=== PATIENT | female | born 1955 | race Caucasian/White ===

== ENCOUNTER 2018-08-06 12:32 | Observation (INO) ==
[2018-08-06] MEDS ORDERED: Famotidine PF Inj 20 MG/2 ML Vial IV.PUSH ONE (14:20)
[2018-08-06 14:49] LABS: Baso # (Auto) 0.1 th/mm3 (0.0-0.2); Baso % (Auto) 0.6 % (0.0-2.0); Eos # (Auto) 0.1 th/mm3 (0.0-0.4); Eos % (Auto) 0.6 % (0.0-4.0); Hematocrit 43.6 % (35.0-46.0); Hemoglobin 14.2 gm/dL (11.6-15.3); Lymph # (Auto) 2.4 th/mm3 (1.0-4.8); Lymph % (Auto) 24.6 % (9.0-44.0); Mean Corpuscular HGB Conc 32.6 % (32.0-36.0); Mean Corpuscular Hemoglobin 30.4 pg (27.0-34.0); Mean Corpuscular Volume 93.1 fL (80.0-100.0); Mean Platelet Volume 9.2 fL (7.0-11.0); Mono # (Auto) 0.7 th/mm3 (0.0-0.9); Mono % (Auto) 6.9 % (0.0-8.0); Neut # (Auto) 6.6 th/mm3 (1.8-7.7); Neut % (Auto) 67.3 % (16.0-70.0); Platelet Count 246 th/mm3 (150-450); Red Blood Count 4.68 mil/mm3 (4.00-5.30); Red Cell Distribution Width 12.8 % (11.6-17.2); White Blood Count 9.9 th/mm3 (4.0-11.0)
[2018-08-06 14:57] LABS: Chloride 105 meq/L (98-107); Potassium 4.1 meq/L (3.5-5.1); Sodium 140 meq/L (136-145)
[2018-08-06 15:00] LABS: Calcium 8.8 mg/dL (8.5-10.1)
[2018-08-06 15:01] LABS: Albumin 3.7 g/dL (3.4-5.0); Anion Gap 9 meq/L (5-15); Blood Urea Nitrogen 12 mg/dL (7-18); Glucose,Random 108 mg/dL (74-106)
[2018-08-06 15:04] LABS: Alanine Aminotransferase 30 U/L (10-53); Aspartate Aminotransferase 26 U/L (15-37); Glomerular Filtration Rate 82 mL/min (>89)
[2018-08-06 15:05] LABS: Total Protein 7.2 g/dL (6.4-8.2)
[2018-08-06 15:07] LABS: Alkaline Phosphatase 39 U/L (45-117)
[2018-08-06] MEDS ORDERED: Aluminum/Magnesium/Simethacone Susp 30 ML UDC PO ONE (15:10)
--- NOTE | 2018-08-06 15:53 | XR ---
EXAM DATE: 08/06/2018 3:49 PM EST AGE/SEX: 62 years / Female INDICATIONS: Vomiting, unable to drink or eat, feels like she is choking when she tries to eat or dr ink CLINICAL DATA: This is the patient's initial encounter. Patient reports that signs and symptoms have been present for 1 day and indicates a pain score of 6/10. MEDICAL/SURGICAL HISTORY: None. None. COMPARISON: No prior exams available for comparison. FINDINGS: A single AP view of the chest demonstrates the lungs to be symmetrically aerated without evidence of mass, infiltrate or effusion. The cardiomediastinal contours are unremarkable. Osseous structures a re intact. CONCLUSION: 1. No acute cardiopulmonary disease. Electronically signed by: Jacob Smith MD 08/06/2018 3:51 PM EST
[2018-08-06] MEDS ORDERED: Acetaminophen 325 MG Tablet PO PRN (16:49)
[2018-08-06] MEDS ORDERED: Bisacodyl 10 MG Supp RECTAL PRN (16:49)
--- NOTE | 2018-08-06 17:05 | P.HP ---
History of Present Illness Primary Care Physician: PROVIDER NON STAFF Chief Complaint: Dysphasia History of Present Illness: 62-year-old female with no chronic medical illnesses who presented to the hospital for evaluation of dysphagia, intractable vomiting. Patient states that she is in normal state of health until this morning. She had 2 cups of coffee and then proceeded to have a piece of turkey for breakfast when she felt something get stuck down in her abdomen and started retching and vomiting up the turkey. She states that this happened to her in the past a few times and she takes an antacid and it usually resolves the problem. She did take an antacid this morning without any relief. Every time the patient tries to drink any liquids or eat any solids she has instant regurgitation of the food or liquid. Because of that reason she came to the emergency department for evaluation. Patient was unsuccessful in Trying any oral medications or treatment due to intractable vomiting. Chest x- ray was performed which did not indicate any acute abnormality. It was recommended by the ER physician that the patient be admitted for further evaluation and management. Patient denies any chest pain, shortness of breath, dyspnea, hematemesis, nausea. - Diagnosis (1) Dysphagia (2) Esophageal mass Review of Systems All other systems reviewed negative except as stated in HPI Gastrointestinal: Reports vomiting PMFSH - History History Provided By: Patient - Medical History Medical History: Medical History (Last Updated 08/06/18 @ 16:58 by DARLEEN Pathak) Alcohol use Hyperlipidemia Tobacco use - Surgical History Surgical History: Surgical History (Last Updated 08/06/18 @ 13:56 by Joanne Saucedo RN) No history of previous surgery - Family History Family History: Family History (Last Updated 08/06/18 @ 16:58 by DARLEEN Pathak) Other No pertinent family history - Tobacco History Second Hand Smoke Exposure: No Tobacco Use In Past 30 Days: Yes Smoking Status: Current every day smoker Tobacco Type: Cigarettes - Alcohol History How Often Do You Have a Drink Containing Alcohol: 4 or more times a week ( Patient drinks at least 2 alcoholic beverages daily) - Substance Use History Substance History: No History of Abuse - Travel History Recent Travel in the [place] Within the Last 8 Weeks: No Recent Travel Out of the Country Within the Last 8 Weeks: No - Immunization History Tetanus Immunization: Unsure Medications and Allergies Allergies Allergy/AdvReac Type Severity Reaction Status Date / Time No Known Allergies Allergy Verified 08/06/18 12:50 Home Medications Medication Instructions Recorded Confirmed Type No Known Home Medications 08/06/18 08/06/18 History Exam Vital signs: Vital Signs 08/06/18 12:47 08/06/18 16:48 Temperature 98.6 F Pulse Rate 81 75 Respiratory Rate 16 16 Blood Pressure 137/92 H 151/61 H Pulse Oximetry 97 100 Intake & Output 08/05/18 08/06/18 08/06/18 18:59 06:59 18:59 Weight 90.2 kg Narrative: GENERAL: Well-developed, well-nourished, in no acute distress. alert and orientated HEENT: Head is normocephalic without any lesions or masses noted. Facial features are symmetric. Eyes: Pupils equal round reactive to light. Extraocular muscles are intact. Conjunctivae were clear. Oropharyngeal: Pharynx without any erythema edema. Tongue is midline without deviation. Buccal mucosa is moist without any masses or lesions NECK: Supple without any masses. Trachea midline no deviation. No JVD, no bruits are appreciated CARDIAC: Regular rhythm, regular rate. S1/S2 are heard. No murmurs gallops or rubs. LUNGS: Clear to auscultation bilaterally. No wheeze, rhonchi or rales. No use of accessory muscles on inspiration or expiration. ABDOMEN: Soft, nontender. Nondistended. Bowel sounds heard in all 4 quadrants. No organomegaly or masses. Negative rebound, negative guarding EXTREMITIES: No edema, pulses are equal bilaterally. No cyanosis or clubbing NEUROLOGY: Mood and affect appear appropriate. Cranial nerves II through XII grossly intact. Muscle strength 5/5 in upper and lower extremities bilaterally. Deep tendon reflexes are 2+ in upper and lower extremities bilaterally. Results - Labs CBC & Chem 7: 08/06/18 14:30 08/06/18 14:30 Labs: Laboratory Results - last 24 hr 08/06/18 08/06/18 14:30 14:30 CBC w Diff Auto diff final WBC 9.9 RBC 4.68 Hgb 14.2 Hct 43.6 MCV 93.1 MCH 30.4 MCHC 32.6 RDW 12.8 Plt Count 246 MPV 9.2 Neut % (Auto) 67.3 Lymph % (Auto) 24.6 [place] % (Auto) 6.9 Eos % (Auto) 0.6 Baso % (Auto) 0.6 Neut # (Auto) 6.6 Lymph # (Auto) 2.4 [place] # (Auto) 0.7 Eos # (Auto) 0.1 Baso # (Auto) 0.1 WBC Differential . Differential Comment . Sodium 140 Potassium 4.1 Chloride 105 Carbon Dioxide 26.0 Anion Gap 9 BUN 12 Creatinine 0.72 Estimated GFR 82 L Random Glucose 108 H Calcium 8.8 Total Bilirubin 0.6 AST 26 ALT 30 Alkaline Phosphatase 39 L Total Protein 7.2 Albumin 3.7 - Imaging Impressions Chest X-Ray 08/06/18 14:54 CONCLUSION: 1. No acute cardiopulmonary disease. Caprini VTE Risk Assessment Caprini VTE Risk Assessment: Moderate/High Risk (score >= 2) Caprini Risk Assessment Model: Point Value = 1 Point Value = 2 Point Value = 3 Point Value = 5 Age 41-60 Minor surgery BMI > 25 kg/m2 Swollen legs Varicose veins or History of unexplained or recurrent spontaneous Oral contraceptives or hormone replacement Sepsis (< 1 month) Serious lung disease, including pneumonia (< 1 month) Abnormal pulmonary function Acute myocardial infarction Congestive heart failure (< 1 month) History of inflammatory bowel disease Medical patient at bed rest Age 61-74 Arthroscopic surgery Major open surgery (> 45 min) Laparoscopic surgery (> 45 min) Malignancy Confined to bed (> 72 hours) Immobilizing plaster cast Central venous access Age >= 75 History of VTE Family history of VTE Factor V Leiden Prothrombin [id number] Lupus anticoagulant Anticardiolipin antibodies Elevated serum homocysteine Heparin-induced thrombocytopenia Other congenital or acquired thrombophilia Stroke (< 1 month) Elective arthroplasty Hip, pelvis, or leg fracture Acute spinal cord injury (< 1 month) Prophylaxis Regimen: Total Risk Factor Score Risk Level Prophylaxis Regimen 0-1 Low Early ambulation 2 Moderate Order ONE of the following: *Sequential Compression Device (SCD) *Heparin 5000 units SQ BID 3-4 Higher Order ONE of the following medications: *Heparin 5000 units SQ TID *Enoxaparin/Lovenox 40 mg SQ daily (WT < 150 kg, CrCl > 30 mL/min) *Enoxaparin/Lovenox 30 mg SQ daily (WT < 150 kg, CrCl > 10-29 mL/min) *Enoxaparin/Lovenox 30 mg SQ BID (WT < 150 kg, CrCl > 30 mL/min) AND/OR *Sequential Compression Device (SCD) 5 or more Highest Order ONE of the following medications: *Heparin 5000 units SQ TID (Preferred with Epidurals) *Enoxaparin/Lovenox 40 mg SQ daily (WT < 150 kg, CrCl > 30 mL/min) *Enoxaparin/Lovenox 30 mg SQ daily (WT < 150 kg, CrCl > 10-29 mL/min) *Enoxaparin/Lovenox 30 mg SQ BID (WT < 150 kg, CrCl > 30 mL/min) AND *Sequential Compression Device (SCD) Assessment and Plan - Assessment (1) Dysphagia Code(s): R13.10 - Dysphagia, unspecified Status: Acute (2) Esophageal mass Code(s): K22.9 - Disease of esophagus, unspecified Status: Acute - Plan Dysphagia with intractable vomiting -Patient intolerant to any liquids or solids. Will keep n.p.o. at this time -Chest x-ray was reviewed by myself and does not have any anatomical abnormalities which could promote dysphagia -GI consultation was requested, patient will require upper endoscopy for evaluation -Consult speech therapist for swallow evaluation -CT scan of the abdomen and pelvis was performed and indicated esophageal mass -Continue IV fluids DVT prevention -Sequential compression devices
--- NOTE | 2018-08-06 17:13 | ED ---
HPI General Chief complaint: Nausea/Vomiting/Diarrhea Stated complaint: Swallowing Difficulty/Acid Reflux [id number] Time Seen by Provider: 08/06/18 14:11 Source: patient Mode of arrival: ambulatory Limitations: no limitations History of Present Illness HPI narrative: Patient is a 62-year-old female who comes in complaining of nausea and vomiting. She says it started this morning after drinking her coffee. She says she feels like things get stuck in her stomach and then she feels like she is suffocating as they come back up. she says she tried to eat some [place] afterwards and it came back up again. She says this has happened before, but she has not followed up with GI. She says she has some burning in her esophagus and she feels like she is having reflux. Severity is moderate. Related Data Home Medications Medication Instructions Recorded Confirmed No Known Home Medications 08/06/18 08/06/18 Allergies Allergy/AdvReac Type Severity Reaction Status Date / Time No Known Allergies Allergy Verified 08/06/18 12:50 Review of Systems ROS: all other systems reviewed are negative Constitutional Denies chills and Denies fever(s) ENT Denies dizziness Cardiovascular Denies chest pain and Denies dyspnea Respiratory Denies cough Gastrointestinal Reports nausea and Reports vomiting Musculoskeletal Denies myalgias and Denies arthralgias Integumentary/Breasts Denies sores and Denies wounds Neurologic Denies focal weakness and Denies numbness PMFSH Medical History Medical History Alcohol use (Acute) Hyperlipidemia (Acute) Tobacco use (Acute) Surgical History Surgical History No history of previous surgery (Acute) Family History Family History Other No pertinent family history Social History Social History Substance History: No History of Abuse Second Hand Smoke Exposure: No Smoking Status: Current every day smoker Tobacco Type: Cigarettes How Often Do You Have a Drink Containing Alcohol: 4 or more times a week ( Patient drinks at least 2 alcoholic beverages daily) Recent Travel in [facility] within the Last 8 Weeks: No Recent Out of Country Travel within the Last 8 Weeks: No Immunization History Tetanus Immunization: Unsure Exam Narrative Exam Narrative: GENERAL: Awake and alert, in no acute distress. SKIN: Focused skin assessment warm/dry. HEAD: Atraumatic. Normocephalic. EYES: Pupils equal and round. No scleral icterus. No injection or drainage. ENT: Mucous membranes pink and moist. NECK: Trachea midline. No JVD. CARDIOVASCULAR: Regular rate and rhythm. No murmur appreciated. RESPIRATORY: No accessory muscle use. Clear to auscultation. Breath sounds equal bilaterally. GASTROINTESTINAL: Abdomen soft, non-tender, nondistended. MUSCULOSKELETAL: No obvious deformities. No clubbing. No cyanosis. No edema. NEUROLOGICAL: Awake and alert. No obvious cranial nerve deficits. Motor grossly within normal limits. Normal speech. PSYCHIATRIC: Appropriate mood and affect; insight and judgment normal. Course Initial Documented Vital Signs Temperature 98.6 F 08/06/18 12:47 Pulse Rate 81 08/06/18 12:47 Respiratory Rate 16 08/06/18 12:47 Blood Pressure 137/92 H 08/06/18 12:47 Pulse Oximetry 97 08/06/18 12:47 Last Documented Vital Signs Temperature 96.7 F L 08/08/18 08:00 Pulse Rate 61 08/08/18 08:00 Respiratory Rate 17 08/08/18 08:00 Blood Pressure 135/62 08/08/18 08:00 Pulse Oximetry 98 08/08/18 08:[address] [facility] Narrative Medical decision making narrative: Patient is a 62 year old female who comes in complaining of nausea and vomiting. Exam shows no acute abnormalities. IV established, labs sent. Labs show no acute abnormalities. Patient given IV zofran and IVF. Given GI cocktail, and started to vomit. Given additional antiemetics without improvement. Patient requires EGD. Will be admitted for further management. Medical Screen Exam Complete: Yes Emergency Medical Condition: Yes Differential Diagnosis Differential Diagnosis: gastritis vs foreign body vs esophageal stricture Medical Records Medical records reviewed: Yes I reviewed the patient's medical records. Lab Data Lab results reviewed: Yes I reviewed the patient's lab results. Result diagrams: 08/06/18 14:30 08/06/18 14:30 Lab Results 08/06/18 08/06/18 08/06/18 Range/Units 14:30 14:30 14:30 CBC w Diff Auto diff final WBC 9.9 (4.0-11.0) th/mm3 RBC 4.68 (4.00-5.30) mil/mm3 Hgb 14.2 (11.6-15.3) gm/dL Hct 43.6 (35.0-46.0) % MCV 93.1 (80.0-100.0) fL MCH 30.4 (27.0-34.0) pg MCHC 32.6 (32.0-36.0) % RDW 12.8 (11.6-17.2) % Plt Count 246 (150-450) th/mm3 MPV 9.2 (7.0-11.0) fL Neut % (Auto) 67.3 (16.0-70.0) % Lymph % (Auto) 24.6 (9.0-44.0) % [place] % (Auto) 6.9 (0.0-8.0) % Eos % (Auto) 0.6 (0.0-4.0) % Baso % (Auto) 0.6 (0.0-2.0) % Neut # (Auto) 6.6 (1.8-7.7) th/mm3 Lymph # (Auto) 2.4 (1.0-4.8) th/mm3 [place] # (Auto) 0.7 (0.0-0.9) th/mm3 Eos # (Auto) 0.1 (0.0-0.4) th/mm3 Baso # (Auto) 0.1 (0.0-0.2) th/mm3 WBC Differential . Differential Comment . PT 9.8 (9.8-11.6) sec INR 1.0 Ratio APTT 23.8 (23.4-31.7) sec Sodium 140 (136-145) meq/L Potassium 4.1 (3.5-5.1) meq/L Chloride 105 (98-107) meq/L Carbon Dioxide 26.0 (21.0-32.0) meq/L Anion Gap 9 (5-15) meq/L BUN 12 (7-18) mg/dL Creatinine 0.72 (0.50-1.00) mg/dL Estimated GFR 82 L (>89) mL/min Random Glucose 108 H (74-106) mg/dL Calcium 8.8 (8.5-10.1) mg/dL Total Bilirubin 0.6 (0.2-1.0) mg/dL AST 26 (15-37) U/L ALT 30 (10-53) U/L Alkaline Phosphatase 39 L (45-117) U/L Total Protein 7.2 (6.4-8.2) g/dL Albumin 3.7 (3.4-5.0) g/dL Imaging Data Radiologist's impression: Abdomen/Pelvis CT 08/06/18 00:00 CONCLUSION: Small hiatal hernia. Nearly 4 cm mass just above the diaphragm involving the lower esophagus/GE junction as described of concern for neoplasm/ malignancy although focal infectious or inflammatory etiologies should also be considered. Associated partial obstruction and mild dilatation of the upstream esophagus. There is a rim calcified structure along the superior margin of the mass; whether this represents part of the mass or some ingested food matter is uncertain. If this does represent esophageal malignancy, I don't see any evidence of metastatic disease. Chest X-Ray 08/06/18 14:54 CONCLUSION: 1. No acute cardiopulmonary disease. Discharge Plan Discharge Disposition Patient Disposition: 01 Discharge Home Discharge Condition Condition: Stable Discharge Order Discharge Orders: Discharge Order (Routine); Ordered 08/08/18 Ordered By: Caro Henry Discharge Details Anticipated Discharge Date: 08/08/18 Discharge Comment: OK TO DC IF TOLERATING MEAL Physicians Team ED Provider: Caro Kowalski Primary Care Provider: NON STAFF,PROVIDER Attending Provider: Pasquale Andrew Other Providers: James Franks V Status ED Status: Left Department Discharge Information Discharge Date/Time: 08/08/18 10:36
--- NOTE | 2018-08-06 17:38 | CT ---
EXAM DATE: 08/06/2018 5:28 PM EST AGE/SEX: 62 years / Female INDICATIONS: Difficulty keeping food down today. CLINICAL DATA: This is the patient's initial encounter. Patient reports that signs and symptoms have been present for 1 day and indicates a pain score of 0/10. MEDICAL/SURGICAL HISTORY: None. None. ORAL CONTRAST: No oral contrast ingested. RADIATION DOSE: 21.43 CTDI (mGy) COMPARISON: . TECHNIQUE: Multiple contiguous axial images were obtained through the abdomen and pelvis following b olus infusion of 95 ml Omnipaque 350 (iohexol) nonionic water-soluble contrast as a single exam dos e. No oral contrast ingested. Using automated exposure control and adjustment of the mA and/or kV ac cording to patient size, radiation dose was kept as low as reasonably achievable to obtain optimal di agnostic quality images. DICOM format image data is available electronically for review and comparis on. FINDINGS: Small hiatal hernia is present. Just above the diaphragm at the level of the distal esophagus/GE junc tion is a masslike area measuring 3.4 x 3.6 x 3.7 cm. Along the superior margin is a 1.6 cm rim calci fied cystic structure. The upstream esophagus is mildly distended and fluid and contrast-filled. Some of the enteric contrast does extend into the stomach. The rest of the stomach appears normal. Small and large bowel within normal limits. Liver, spleen, pancreas, adrenal glands and kidneys are all within normal limits. No free fluid or fr ee air. No lymphadenopathy. Visualized lung bases are clear. No acute bony abnormalities are demonstr ated. There is a 5 mm sclerotic structure towards the right of the L4 vertebral body, most likely a b enign bone island. CONCLUSION: Small hiatal hernia. Nearly 4 cm mass just above the diaphragm involving the lower esopha [place]/GE junction as described of concern for neoplasm/malignancy although focal infectious or inflamma tory etiologies should also be considered. Associated partial obstruction and mild dilatation of the upstream esophagus. There is a rim calcified structure along the superior margin of the mass; whether this represents part of the mass or some ingested food matter is uncertain. If this does represent e sophageal malignancy, I don't see any evidence of metastatic disease. Electronically signed by: Chivo Martinez MD 08/06/2018 5:37 PM EST
[2018-08-06] MEDS: Sod Chloride 0.9% Inj 1,000 ML IV.CONT SCH (18:19)
[2018-08-06 18:41] LABS: Activated Partial Thrombo Time 23.8 sec (23.4-31.7); Prothrombin Time 9.8 sec (9.8-11.6)
[2018-08-06] MEDS: Famotidine PF Inj 20 MG/2 ML Vial IV.PUSH SCH (20:29)
[2018-08-07] MEDS: Sod Chloride 0.9% Inj 1,000 ML IV.CONT SCH ×3 (04:20→23:26)
[2018-08-07] MEDS: Famotidine PF Inj 20 MG/2 ML Vial IV.PUSH SCH ×2 (08:39→20:38)
--- NOTE | 2018-08-07 08:40 | P.PNIM ---
Subjective Interval history: 62-year-old female who is seen examined today for follow-up on dysphagia, esophageal mass. Patient laying in bed comfortable today denies any new complaints. Started having loose stools this morning. Vital signs are stable. Patient remains afebrile. Physical Exam Vital signs: Vital Signs 08/06/18 12:47 08/06/18 16:48 08/06/18 18:41 Temperature 98.6 F 97.1 F L Pulse Rate 81 75 71 Respiratory Rate 16 16 16 Blood Pressure 137/92 H 151/61 H 142/64 H Pulse Oximetry 97 100 99 08/06/18 20:00 08/07/18 00:00 Temperature 96.5 F L 95.5 F L Pulse Rate 72 82 Respiratory Rate 18 18 Blood Pressure 136/62 119/58 L Pulse Oximetry 97 97 Intake & Output 08/06/18 08/07/18 08/07/18 18:59 06:59 18:59 Intake Total 1000 / 1000 Output Total 150 / 150 Balance 850 / 850 Weight 90.2 kg 89.6 kg Intake: IV 1000 / 1000 NS Inj 1,000 ML @ 100 mls/hr IV 1000 / 1000 .CONT .Q10H DARA Rx#:[id number] Oral 0 / 0 Output: Urine 150 / 150 Other: Date of Last Bowel Movement 08/06/18 Weight On Admission 90.2 kg Narrative: GENERAL: Well-developed, well-nourished, in no acute distress. alert and orientated HEENT: Head is normocephalic without any lesions or masses noted. Facial features are symmetric. Eyes: Extraocular muscles are intact. Conjunctivae were clear. NECK: Supple without any masses. Trachea midline no deviation. No JVD, CARDIAC: Regular rhythm, regular rate. S1/S2 are heard. No murmurs gallops or rubs. LUNGS: Clear to auscultation bilaterally. No wheeze, rhonchi or rales. No use of accessory muscles on inspiration or expiration. ABDOMEN: Soft, nontender. Nondistended. Bowel sounds heard in all 4 quadrants. No organomegaly or masses. Negative rebound, negative guarding EXTREMITIES: No edema, pulses are equal bilaterally. No cyanosis or clubbing NEUROLOGY: Mood and affect appear appropriate. Cranial nerves II through XII grossly intact. Moving all extremities, speech is clear Results - Labs CBC & Chem 7: 08/06/18 14:30 08/06/18 14:30 Laboratory Results - last 24 hr 08/06/18 08/06/18 08/06/18 14:30 14:30 14:30 CBC w Diff Auto diff final WBC 9.9 RBC 4.68 Hgb 14.2 Hct 43.6 MCV 93.1 MCH 30.4 MCHC 32.6 RDW 12.8 Plt Count 246 MPV 9.2 Neut % (Auto) 67.3 Lymph % (Auto) 24.6 [place] % (Auto) 6.9 Eos % (Auto) 0.6 Baso % (Auto) 0.6 Neut # (Auto) 6.6 Lymph # (Auto) 2.4 [place] # (Auto) 0.7 Eos # (Auto) 0.1 Baso # (Auto) 0.1 WBC Differential . Differential Comment . PT 9.8 INR 1.0 APTT 23.8 Sodium 140 Potassium 4.1 Chloride 105 Carbon Dioxide 26.0 Anion Gap 9 BUN 12 Creatinine 0.72 Estimated GFR 82 L Random Glucose 108 H Calcium 8.8 Total Bilirubin 0.6 AST 26 ALT 30 Alkaline Phosphatase 39 L Total Protein 7.2 Albumin 3.7 - Imaging Impressions Abdomen/Pelvis CT 08/06/18 00:00 CONCLUSION: Small hiatal hernia. Nearly 4 cm mass just above the diaphragm involving the lower esophagus/GE junction as described of concern for neoplasm/ malignancy although focal infectious or inflammatory etiologies should also be considered. Associated partial obstruction and mild dilatation of the upstream esophagus. There is a rim calcified structure along the superior margin of the mass; whether this represents part of the mass or some ingested food matter is uncertain. If this does represent esophageal malignancy, I don't see any evidence of metastatic disease. Chest X-Ray 08/06/18 14:54 CONCLUSION: 1. No acute cardiopulmonary disease. Assessment and Plan - Assessment (1) Dysphagia Code(s): R13.10 - Dysphagia, unspecified Status: Acute (2) Esophageal mass Code(s): K22.9 - Disease of esophagus, unspecified Status: Acute - Plan Dysphagia with intractable vomiting -Patient intolerant to any liquids or solids. Continue n.p.o. at this time -Chest x-ray was reviewed by myself and does not have any anatomical abnormalities which could promote dysphagia -CT scan of the abdomen and pelvis was performed and indicated esophageal mass -GI consultation was requested, patient will require upper endoscopy for evaluation -Consult speech therapist for swallow evaluation -Continue IV fluids DVT prevention -Sequential compression devices Discharge Planning: Discharge planning after endoscopy and cleared by GI
--- NOTE | 2018-08-07 18:24 | P.CONGI ---
History of Present Illness Chief complaint: intractable vomiting History of Present Illness: Patient is a 62-year-old female who was admitted to the hospital with history of progressively worsening dysphagia. She has been having intermittent episodes of dysphagia heartburn and dyspepsia for the last 6 months. It has worsened to the point that she can only ingest p.o. liquids. She denies any history of hematemesis melena hematochezia anorexia or weight loss. She reports symptoms are intermittent nausea vomiting diarrhea. There is no history of jaundice ascites or edema. CT scan of the chest done in the hospital revealed presence of distal esophageal mass Review of Systems Gastrointestinal: Reports difficulty swallowing PMFSH - History History Provided By: Patient - Medical History Medical History: Medical History (Last Updated 08/06/18 @ 16:58 by DARLEEN Pathak) Alcohol use Hyperlipidemia Tobacco use - Surgical History Surgical History: Surgical History (Last Updated 08/06/18 @ 13:56 by Joanne Saucedo RN) No history of previous surgery - Family History Family History: Family History (Last Updated 08/06/18 @ 16:58 by DARLEEN Pathak) Other No pertinent family history - Tobacco History Second Hand Smoke Exposure: No Tobacco Use In Past 30 Days: Yes Smoking Status: Current every day smoker Tobacco Type: Cigarettes - Alcohol History How Often Do You Have a Drink Containing Alcohol: 4 or more times a week ( Patient drinks at least 2 alcoholic beverages daily) - Substance Use History Substance History: No History of Abuse - Travel History Recent Travel in the [place] Within the Last 8 Weeks: No Recent Travel Out of the Country Within the Last 8 Weeks: No - Immunization History Tetanus Immunization: Unsure Medications and Allergies Active Medications: Active Medications Acetaminophen (Tylenol) 650 mg PO Q4H PRN PRN Reason: Temp > 100.4 Acetaminophen (Tylenol Liq) 650 mg PO Q4H PRN PRN Reason: temp > 100.4/ANDRADE Al Hydroxide/Mg Hydroxide (Milk Of Magnesia Liq) 30 ml PO Q12H PRN PRN Reason: Mild Constipation Bisacodyl (Dulcolax Supp) 10 mg RECTAL DAILY PRN PRN Reason: SEVERE CONSITIPATION Famotidine (Pepcid Pf Inj) 20 mg IV.PUSH Q12HR DARA Last Admin: 08/07/18 08:39 Dose: 20 mg Sodium Chloride (Ns Inj) 1,000 mls @ 100 mls/hr IV.CONT .Q10H DARA Last Admin: 08/07/18 14:19 Dose: 100 mls/hr Lactulose (Lactulose Liq) 30 ml PO DAILY PRN PRN Reason: SEVERE CONSITIPATION Ondansetron HCl (Zofran Inj) 4 mg IV.PUSH Q6H PRN PRN Reason: NAUSEA OR VOMITING Sennosides (Senokot) 17.2 mg PO Q12H PRN PRN Reason: Moderate Constipation Allergies Allergy/AdvReac Type Severity Reaction Status Date / Time No Known Allergies Allergy Verified 08/06/18 12:50 Home Medications Medication Instructions Recorded Confirmed Type No Known Home Medications 08/06/18 08/06/18 History Exam Vital signs: Vital Signs 08/06/18 18:41 08/06/18 20:00 08/07/18 00:00 Temperature 97.1 F L 96.5 F L 95.5 F L Pulse Rate 71 72 82 Respiratory Rate 16 18 18 Blood Pressure 142/64 H 136/62 119/58 L Pulse Oximetry 99 97 97 08/07/18 08:00 08/07/18 11:26 08/07/18 16:00 Temperature 98.8 F 98.0 F 98.3 F Pulse Rate 80 71 73 Respiratory Rate 18 18 18 Blood Pressure 120/60 141/58 H 123/59 L Pulse Oximetry 96 97 96 Intake & Output 08/06/18 08/07/18 08/07/18 18:59 06:59 18:59 Intake Total 1000 / 1000 1000 / 1000 Output Total 150 / 150 Balance 850 / 850 1000 / 1000 Weight 90.2 kg 89.6 kg Intake: IV 1000 / 1000 1000 / 1000 NS Inj 1,000 ML @ 100 mls/hr IV 1000 / 1000 1000 / 1000 .CONT .Q10H DARA Rx#:[id number] Oral 0 / 0 Output: Urine 150 / 150 Other: Date of Last Bowel Movement 08/06/18 08/06/18 Weight On Admission 90.2 kg - Routine Abdominal Exam Comments: Abdomen soft no tenderness guarding or rigidity. Liver and spleen not palpable. No other masses palpable no ascites bowel sounds are normal Results - Labs CBC & Chem 7: 08/06/18 14:30 08/06/18 14:30 Labs: Laboratory Results - last 24 hr 08/06/18 14:30 PT 9.8 INR 1.0 APTT 23.8 - Imaging CT scan of the chest, showed distal esophageal mass Assessment and Plan - Attending Attestation 1. Dysphagia likely from esophageal neoplasm. Peptic stricture with retained food also a less likely possibility 2. EGD in the a.m. for establishing the diagnosis
[2018-08-07] MEDS ORDERED: Zolpidem Tartrate 5 MG Tablet PO ONE (21:08)
--- NOTE | 2018-08-08 06:49 | ECG ---
Date Performed: 08/06/2018 Time Performed: 18:51:31 PTAGE: 62 years EKG: Sinus rhythm POSSIBLE LEFT ATRIAL ENLARGEMENT LOW QRS VOLTAGE IN PRECORDIAL LEADS BORDERLINE ECG NO PREVIOUS TRACING DOCTOR: Elder Warner Interpretating Date/Time 08/08/2018 06:46:52
[2018-08-08] MEDS: Famotidine PF Inj 20 MG/2 ML Vial IV.PUSH SCH (08:43)
--- NOTE | 2018-08-08 08:44 | P.PCN ---
Date of procedure: 08/08/18 Procedure: THANK YOU FOR THE REFERRAL Indication; possible mass in the distal esophagus Procedure Performed; upper endoscopy with biopsy After informing the patient about procedure and possible complications consent was signed. history and physical were updated. Patient was taken to the procedure room and placed in position. Time out was completed. Adequate sedation was performed by anesthesia provider. Upper Endoscopy, the scope was placed in the mouth advanced under video guide to the second portion of the duodenum, then the scope was withdrawal to the stomach and retro-flexion was performed, the scope was withdrawal to the esophagus then out of the mouth without any immediate complication Findings; Esophagus: Small hiatal hernia, questionable mass versus prominent fold at the EG junction biopsy was done Stomach normal Duodenum normal Recommendations; 1- Supportive care 2- ok to transfer to recovery area then discharge per protocol 3-await biopsy results 4-regular diet 5-follow-up as an outpatient, patient will possibly need endoscopic ultrasound for evaluation of that lesion at the EG junction 6-return to clinic in [address] Fuller
--- NOTE | 2018-08-08 08:47 | P.PNGI ---
Subjective Interval history: Patient is laying in bed, no significant complaint at this time, no dysphagia Physical Exam Vital signs: Vital Signs 08/07/18 11:26 08/07/18 16:00 08/07/18 20:00 Temperature 98.0 F 98.3 F 96.8 F L Pulse Rate 71 73 68 Respiratory Rate 18 18 18 Blood Pressure 141/58 H 123/59 L 126/60 Pulse Oximetry 97 96 98 08/08/18 00:00 08/08/18 06:45 08/08/18 07:29 Temperature 97.5 F L 99.2 F 97.8 F Pulse Rate 60 70 68 Respiratory Rate 18 18 14 Blood Pressure 127/66 131/64 104/48 L Pulse Oximetry 97 96 98 08/08/18 07:50 Temperature Pulse Rate 61 Respiratory Rate 16 Blood Pressure 115/49 L Pulse Oximetry 97 Intake & Output 08/07/18 08/08/18 08/08/18 18:59 06:59 18:59 Intake Total 1000 / 1000 950 / 950 200 / 200 Output Total 600 / 600 Balance 1000 / 1000 350 / 350 200 / 200 Weight 90.1 kg Intake: IV 1000 / 1000 950 / 950 NS Inj 1,000 ML @ 100 mls/hr IV 1000 / 1000 950 / 950 .CONT .Q10H DARA Rx#:[id number] Oral 0 / 0 Anesthesia Amount 200 / 200 Output: Urine 600 / 600 Other: # Voids 7 Date of Last Bowel Movement 08/06/18 08/06/18 # Bowel Movements 1 - Constitutional no acute distress - Routine HEENT Exam Head: Present: normocephalic Eye: Present: EOMI, PERRL ENT: Present: mucous membranes moist - Routine Neck Exam Present: supple, full ROM - Routine Respiratory Exam Present: CTA bilaterally - Routine Cardiovascular Exam Present: RRR, S1, S2 - Routine Abdominal Exam Present: soft, normoactive bowel sounds - Routine Skin Exam Present: intact, warm - Routine Neurological Exam Present: alert, oriented X3 - Routine Psychiatric Exam Present: normal affect Results - Labs CBC & Chem 7: 08/06/18 14:30 08/06/18 14:30 Assessment and Plan - Plan 62-year-old lady who had abnormal CT scan showing a mass at the EG junction, patient had endoscopy today Findings; Esophagus: Small hiatal hernia, questionable mass versus prominent fold at the EG junction biopsy was done Stomach normal Duodenum normal Recommendations; 1- Supportive care 2- ok to transfer to recovery area then discharge per protocol 3-await biopsy results 4-regular diet 5-follow-up as an outpatient, patient will possibly need endoscopic ultrasound for evaluation of that lesion at the EG junction 6-return to clinic in [address] Fuller
--- NOTE | 2018-08-08 09:09 | P.DS ---
Date of admission: 08/06/18 16:38 Primary care physician: PROVIDER NON STAFF Brief History from admission: 62-year-old female with no chronic medical illnesses who presented to the hospital for evaluation of dysphagia, intractable vomiting. Patient states that she is in normal state of health until this morning. She had 2 cups of coffee and then proceeded to have a piece of turkey for breakfast when she felt something get stuck down in her abdomen and started retching and vomiting up the turkey. She states that this happened to her in the past a few times and she takes an antacid and it usually resolves the problem. She did take an antacid this morning without any relief. Every time the patient tries to drink any liquids or eat any solids she has instant regurgitation of the food or liquid. Because of that reason she came to the emergency department for evaluation. Patient was unsuccessful in Trying any oral medications or treatment due to intractable vomiting. Chest x- ray was performed which did not indicate any acute abnormality. It was recommended by the ER physician that the patient be admitted for further evaluation and management. Patient denies any chest pain, shortness of breath, dyspnea, hematemesis, nausea. Patient update on day of discharge: Patient follow up for dysphagia. Patient seen and examined, lying in bed comfortably status post EGD. Spoke with GI, prominent hernia present, likely a foreign body that passed prior to EGD. OK to DC from their standpoint if tolerating PO intake well. Patient is stable and comfortable. VSS. Afebrile. Follow up GI outpatient. DS: Diagnosis - Discharge Diagnosis (1) Hernia Status: Acute (2) Dysphagia Status: Acute DS: Summary Hospital Course: This is a 62-year-old female lady who presents to the ED with difficulty swallowing, had an abnormal CT scan showing a mass at the EG junction, underwent an endoscopy with gastroenterology on 08/08/18 with findings of small hiatal hernia with questionable mass versus prominent fold at the EG junction, biopsy was performed. The stomach and duodenum were normal. Patient will follow up with GI in 1 week upon discharge, will possibly need endoscopic ultrasound for evaluation of that lesion at the EG junction. Patient denies any nausea or vomiting. Has resolved since presentation. Speech therapy consulted, passed swallow eval. Patient is stable at this time and will be discharged home to follow-up with PCP and GI. Prescriptions as written. Activity as tolerated. Diet as tolerated. Patient is agreeable to plan. - Time Spent with Patient Total time spent providing and/or coordinating discharge services: Greater than 30 minutes - Quality: VTE Deep Vein Thrombosis/Pulmonary Embolism Present on Admission: No Exam Vital signs: Vital Signs 08/07/18 11:26 08/07/18 16:00 08/07/18 20:00 Temperature 98.0 F 98.3 F 96.8 F L Pulse Rate 71 73 68 Respiratory Rate 18 18 18 Blood Pressure 141/58 H 123/59 L 126/60 Pulse Oximetry 97 96 98 08/08/18 00:00 08/08/18 06:45 08/08/18 07:29 Temperature 97.5 F L 99.2 F 97.8 F Pulse Rate 60 70 68 Respiratory Rate 18 18 14 Blood Pressure 127/66 131/64 104/48 L Pulse Oximetry 97 96 98 08/08/18 07:50 08/08/18 08:00 Temperature 96.7 F L Pulse Rate 61 61 Respiratory Rate 16 17 Blood Pressure 115/49 L 135/62 Pulse Oximetry 97 98 Intake & Output 08/07/18 08/08/18 08/08/18 18:59 06:59 18:59 Intake Total 1000 / 1000 950 / 950 200 / 200 Output Total 600 / 600 Balance 1000 / 1000 350 / 350 200 / 200 Weight 90.1 kg Intake: IV 1000 / 1000 950 / 950 NS Inj 1,000 ML @ 100 mls/hr IV 1000 / 1000 950 / 950 .CONT .Q10H DARA Rx#:[id number] Oral 0 / 0 Anesthesia Amount 200 / 200 Output: Urine 600 / 600 Other: # Voids 7 Date of Last Bowel Movement 08/06/18 08/06/18 08/07/18 # Bowel Movements 1 Narrative: GENERAL: Well-developed, well-nourished patient in [facility]. SKIN: Warm and dry. No rash. HEAD: Normocephalic. Atraumatic. EYES: Pupils equal and round. No scleral icterus. No injection or drainage. ENT: No nasal bleeding or discharge. Mucous membranes pink and moist. NECK: Supple. Trachea midline. CARDIOVASCULAR: Regular rate and rhythm. S1, S2 noted. No murmur appreciated. RESPIRATORY: No accessory muscle use. Clear to auscultation. Breath sounds equal bilaterally. GASTROINTESTINAL: Abdomen soft, non-tender, nondistended. Normoactive bowel sounds x4. MUSCULOSKELETAL: No obvious deformities. Extremities without clubbing, cyanosis , or edema. NEUROLOGICAL: Awake and alert. No obvious cranial nerve deficits. Motor grossly within normal limits. 5/5 muscle strength in bilateral upper and lower extremities. Normal speech. PSYCHIATRIC: Appropriate mood and affect; insight and judgment normal. Results Procedures completed during hospitalization: EGD 08/08/18 Pending studies at discharge: Pending at discharge 08/08/18 Surgical [PTH] Routine - Impressions ITS Impressions Abdomen/Pelvis CT 08/06/18 00:00 CONCLUSION: Small hiatal hernia. Nearly 4 cm mass just above the diaphragm involving the lower esophagus/GE junction as described of concern for neoplasm/ malignancy although focal infectious or inflammatory etiologies should also be considered. Associated partial obstruction and mild dilatation of the upstream esophagus. There is a rim calcified structure along the superior margin of the mass; whether this represents part of the mass or some ingested food matter is uncertain. If this does represent esophageal malignancy, I don't see any evidence of metastatic disease. Chest X-Ray 08/06/18 14:54 CONCLUSION: 1. No acute cardiopulmonary disease. Discharge Plan - Discharge Disposition Patient Disposition: Discharge Home - Discharge Condition Condition: Stable - Discharge Order Discharge Orders: Discharge Order (Routine); Ordered 08/08/18 Ordered By: Caro Henry - Discharge Details Anticipated Discharge Date: 08/08/18 Discharge Comment: OK TO DC IF TOLERATING MEAL - Physicians Team Primary Care Provider: NON STAFF,PROVIDER Attending Provider: Pasquale Andrew Other Providers: James Franks MD
[2018-08-08] MEDS: Sod Chloride 0.9% Inj 1,000 ML IV.CONT SCH (10:21)
== END 2018-08-08 10:37 | disposition home or self-care (01) ==
LOC: PHEDA 12:32 → PHED 12:32 → PHEDA 17:37 → PH3 17:38
PROVIDERS: ADMIT Internal Medicine; ATTEND Internal Medicine
PROC: PANENDO (2018-08-08 07:14)
DX: R13.10 Dysphagia, unspecified; K44.9 Diaphragmatic hernia without obstruction or gangrene; K22.9 Disease of esophagus, unspecified; K31.7 Polyp of stomach and duodenum; K21.9 Gastro-esophageal reflux disease without esophagitis; F17.210 Nicotine dependence, cigarettes, uncomplicated; R11.10 Vomiting, unspecified; E78.5 Hyperlipidemia, unspecified; R11.2 Nausea with vomiting, unspecified; R19.7 Diarrhea, unspecified